=== PATIENT | female | born 1945 | race Caucasian/White ===

== ENCOUNTER 2017-07-16 12:52 | Emergency (ER) | payer MEDICARE, MEDICAID ==
[~2017-07-16] VITALS: Ht 160 cm; Wt 66.0 kg
[2017-07-16] MEDS ORDERED: SODIUM CHLORIDE 0.9% 1,000 ML IV ONE (13:23)
[2017-07-16] MEDS ORDERED: MORPHINE SULFATE 4 MG/ML CPJ (NOT FOR IM USE) IV STA (13:23)
[2017-07-16 14:00] LABS: CHLORIDE 108 mEq/L (98-107)
[2017-07-16 14:01] LABS: PROTHROMBIN TIME 10.8 sec (9.4-11.6)
[2017-07-16 14:09] LABS: CARBON DIOXIDE 24 mEq/L (21-32)
[2017-07-16 14:19] LABS: BASOPHILS % 0.5 % (0.0-2.0); EOSINOPHILS % 0.6 % (0.0-5.0); HEMATOCRIT. 39.5 % (36.0-48.0); HEMOGLOBIN. 13.5 g/dL (12.0-16.0); LYMPHOCYTES % 23.3 % (20.0-50.0); MEAN CORPUSCULAR HEMOGLOBIN 28.3 pg (28.0-32.0); MEAN CORPUSCULAR VOLUME 82.7 fL (81.0-99.0); MEAN PLATELET VOLUME 8.8 fl (7.4-10.4); MONOCYTES % 7.2 % (2.0-8.0); NEUTROPHILS % 68.4 % (40.0-76.0); PLATELET 198 x1000/uL (130-400); RED BLOOD CELL COUNT 4.78 mill/uL (4.2-5.4); RED CELL DISTRIBUTION WIDTH 13.9 % (11.6-14.6)
[2017-07-16 15:02] LABS: CLARITY URINE CLEAR (CLEAR); COLOR URINE YELLOW (YELLOW); GLUCOSE URINE NEGATIVE (NEGATIVE); KETONES URINE TRACE (NEGATIVE); LEUKOCYTE ESTERASE URINE NEGATIVE (NEGATIVE); NITRITE URINE NEGATIVE (NEGATIVE); OCCULT BLOOD URINE NEGATIVE (NEGATIVE); PH URINE 7.5 (4.5-8.0); PROTEIN URINE NEGATIVE (NEGATIVE); SPECIFIC GRAVITY URINE 1.006 (1.005-1.030); UROBILINOGEN URINE 0.2 E.U./dL (0.2-1.0)
[2017-07-16] MEDS ORDERED: TRAMADOL 50MG TABLET PO ONE (15:30)
[2017-07-16 16:12] VITALS: BP 145/77
== END 2017-07-16 16:13 | disposition home or self-care (01) ==
LOC: ER 13:33
DX: R10.9 Unspecified abdominal pain (principal); M19.90 Unspecified osteoarthritis, unspecified site; E78.00 Pure hypercholesterolemia, unspecified; I10 Essential (primary) hypertension; Z88.0 Allergy status to penicillin; Z87.11 Personal history of peptic ulcer disease; Z90.710 Acquired absence of both cervix and uterus
CPT/HCPCS: 36415; 74176; 80053; 81003; 83690; 85025; 85610; 93005; 96361; 96374; 99285; J2270; J7030

== ENCOUNTER 2019-06-20 18:24 | Emergency (ER) | payer MEDICARE, MEDICAID ==
[~2019-06-20] VITALS: Ht 162.6 cm; Wt 66.0 kg
[2019-06-20 18:38] VITALS: BP 175/103
== END 2019-06-20 21:28 | disposition left against medical advice (07) ==
LOC: ER 18:24
DX: Z53.21 Procedure and treatment not carried out due to patient leaving prior to being seen by health care provider (principal); Z88.0 Allergy status to penicillin; K21.9 Gastro-esophageal reflux disease without esophagitis; R73.03 Prediabetes; M19.90 Unspecified osteoarthritis, unspecified site; Z90.710 Acquired absence of both cervix and uterus

== ENCOUNTER → 2019-06-22 | Outpatient (CLI) | payer MEDICARE, MEDICAID | END | disposition home or self-care (01) | LOC: US 08:15 | PROVIDERS: ATTEND Internal Medicine Gastroenterology | DX: K76.0 Fatty (change of) liver, not elsewhere classified (principal); K76.89 Other specified diseases of liver | CPT/HCPCS: 76705 ==

== ENCOUNTER → 2023-06-12 | Outpatient (CLI) | payer MEDICARE, MEDICAID | END | disposition home or self-care (01) | LOC: RAD 11:06 | PROVIDERS: ATTEND Specialist | DX: S22.32XA Fracture of one rib, left side, initial encounter for closed fracture (principal); R07.81 Pleurodynia; X58.XXXA Exposure to other specified factors, initial encounter; Y93.89 Activity, other specified; Y92.89 Other specified places as the place of occurrence of the external cause; Y99.8 Other external cause status | CPT/HCPCS: 71110 ==

== ENCOUNTER 2024-12-08 23:05 | Inpatient (IN) | payer MEDICARE, MEDICAID ==
[~2024-12-08] VITALS: Ht 160 cm; Wt 73.0 kg
[~2024-12-08 23:05] MED LIST: CYCL5TAB3 PO; HYDR12.54 PO; OLME40TA18 PO
[2024-12-08 23:06] VITALS: BP 111/64; PULSE 73; RESP 18; TEMP 36.6
[2024-12-09] MEDS ORDERED: NALOXONE HCL 0.4MG/ML 1ML VIAL IV PRN (01:00)
[2024-12-09] MEDS ORDERED: DEXTROSE 50% WATER 50ML SYRINGE IV PRN (01:15)
[2024-12-09] MEDS: BLOOD SUGAR DIAGNOSTIC STRIP TEST SCH (06:17)
[2024-12-09 06:26] LABS: BASOPHILS % 0.1 % (0.0-2.0); EOSINOPHILS % 2.6 % (0.0-5.0); HEMATOCRIT. 39.7 % (36.0-48.0); HEMOGLOBIN. 13.2 g/dL (12.0-16.0); LYMPHOCYTES % 31.1 % (20.0-50.0); MEAN CORPUSCULAR HEMOGLOBIN 27.8 pg (28.0-32.0); MEAN CORPUSCULAR HGB CONC 33.2 g/dL (31.0-37.0); MEAN CORPUSCULAR VOLUME 83.7 fL (81.0-99.0); MEAN PLATELET VOLUME 8.5 fl (7.4-10.4); MONOCYTES % 9.5 % (2.0-8.0); NEUTROPHILS % 56.7 % (40.0-76.0); PLATELET 149 x1000/uL (130-400); RED BLOOD CELL COUNT 4.74 mill/uL (4.2-5.4); RED CELL DISTRIBUTION WIDTH 14.8 % (11.6-14.6); WHITE BLOOD COUNT 10.6 x1000/uL (4.5-11.0)
[2024-12-09 06:46] LABS: CHLORIDE 104 mEq/L (98-107); POTASSIUM 4.1 mEq/L (3.5-5.1); SODIUM 141 mEq/L (136-145)
[2024-12-09 06:48] LABS: CARBON DIOXIDE 26 mEq/L (21-32)
[2024-12-09 06:53] LABS: CREATININE 0.8 mg/dL (0.6-1.0)
[2024-12-09 06:54] LABS: ALANINE AMINOTRANSFERASE 20 IU/L (10-49); GLUCOSE 113 mg/dL (70-105); UREA NITROGEN BLOOD 22 mg/dL (9-23)
[2024-12-09 06:55] LABS: ASPARTATE AMINOTRANSFERASE 13 IU/L (<34)
[2024-12-09 06:56] LABS: ALBUMIN 3.4 g/dL (3.2-4.8); BILIRUBIN TOTAL 0.7 mg/dL (0.1-1.0); PREALBUMIN 18.4 mg/dl (10.0-40.0); PROTEIN TOTAL 5.6 g/dL (6.0-8.3)
[2024-12-09 08:00] VITALS: BP 125/72; PULSE 81; RESP 18; TEMP 36.2; O2SAT 98
[2024-12-09] MEDS: INSULIN LISPRO 100 UNITS/ML SUBCUT SCH (09:00)
[2024-12-09] MEDS: DOCUSATE SODIUM 100MG CAPSULE PO SCH (09:24)
[2024-12-09] MEDS: AMLODIPINE 5MG TABLET PO SCH (09:24)
[2024-12-09] MEDS: HYDROCODONE/ACETAMINOPHEN 5/325MG TABLET PO PRN (09:25)
[2024-12-09] MEDS: POLYETHYLENE GLYCOL 3350 (17GM) 1 DOSE PACK PO SCH (09:26)
[2024-12-09] MEDS: METFORMIN HCL 500MG TABLET PO SCH (09:27)
[2024-12-09] MEDS ORDERED: BISACODYL 10MG SUPP PR NR (15:00)
[2024-12-09] MEDS ORDERED: LACTULOSE 20G/30ML UDC PO SCH (15:00)
[2024-12-09] MEDS: ACETAMINOPHEN 500MG TABLET PO PRN (17:24)
[2024-12-09 20:00] VITALS: BP 110/60; PULSE 86; RESP 18; TEMP 36.2; O2SAT 98
[2024-12-10 06:35] LABS: BASOPHILS % 0.1 % (0.0-2.0); EOSINOPHILS % 2.3 % (0.0-5.0); HEMATOCRIT. 37.6 % (36.0-48.0); HEMOGLOBIN. 12.5 g/dL (12.0-16.0); LYMPHOCYTES % 24.3 % (20.0-50.0); MEAN CORPUSCULAR HEMOGLOBIN 27.9 pg (28.0-32.0); MEAN CORPUSCULAR HGB CONC 33.3 g/dL (31.0-37.0); MEAN CORPUSCULAR VOLUME 83.8 fL (81.0-99.0); MEAN PLATELET VOLUME 8.5 fl (7.4-10.4); MONOCYTES % 7.8 % (2.0-8.0); NEUTROPHILS % 65.5 % (40.0-76.0); PLATELET 147 x1000/uL (130-400); RED BLOOD CELL COUNT 4.49 mill/uL (4.2-5.4); RED CELL DISTRIBUTION WIDTH 14.9 % (11.6-14.6); WHITE BLOOD COUNT 8.5 x1000/uL (4.5-11.0)
[2024-12-10 06:51] LABS: CARBON DIOXIDE 26 mEq/L (21-32); CHLORIDE 105 mEq/L (98-107); POTASSIUM 4.2 mEq/L (3.5-5.1); SODIUM 142 mEq/L (136-145)
[2024-12-10 06:52] LABS: CALCIUM 8.8 mg/dL (8.7-10.4)
[2024-12-10 06:56] LABS: CREATININE 0.7 mg/dL (0.6-1.0); IRON 95 ug/dL (50-170)
[2024-12-10 06:57] LABS: GLUCOSE 120 mg/dL (70-105); UREA NITROGEN BLOOD 25 mg/dL (9-23)
[2024-12-10 06:59] LABS: FOLIC ACID (FOLATE) SERUM 14.68 ng/mL (>5.38); TOTAL IRON BINDING CAPACITY 170 ug/dl (250-425)
[2024-12-10 07:00] LABS: THYROID STIMULATING HORMONE 2.87 uIU/mL (0.55-4.78)
[2024-12-10 07:02] LABS: FERRITIN 35 ng/mL (10-291)
[2024-12-10 07:04] LABS: VITAMIN B12 SERUM 360 pg/mL (211-911)
[2024-12-10 08:00] VITALS: BP 122/68; PULSE 86; RESP 18; TEMP 36.2; O2SAT 99
[2024-12-10] MEDS ORDERED: NALOXONE HCL 0.4MG/ML VIAL IV PRN (18:45)
[2024-12-10 20:05] VITALS: BP 153/69; PULSE 86; RESP 20; TEMP 36.4; O2SAT 99
[2024-12-10] MEDS: CYANOCOBALAMIN 1000MCG/ML VIAL IM SCH (20:27)
[2024-12-11 08:00] VITALS: BP 125/65; PULSE 75; RESP 19; TEMP 36.2; O2SAT 96
[2024-12-11] MEDS ORDERED: METF-414 PO (12:30)
[2024-12-11] MEDS ORDERED: AMLO5TAB88 PO (12:30)
[2024-12-11] MEDS ORDERED: SENNOSIDES/DOCUSATE SOD 8.6/50MG TABLET PO PRN (15:00)
[2024-12-11] MEDS: ERGOCALCIFEROL 50000UNITS CAPSULE PO SCH (15:33)
[2024-12-11 20:00] VITALS: BP 119/68; PULSE 75; RESP 18; TEMP 36.2; O2SAT 95
[2024-12-11] MEDS: DOCUSATE SODIUM 100MG CAPSULE PO SCH (20:11)
[2024-12-12 08:00] VITALS: BP 169/92; PULSE 75; RESP 18; TEMP 36.1; O2SAT 96
[2024-12-12] MEDS: LACTULOSE 20G/30ML UDC PO SCH (10:26)
[2024-12-12 20:00] VITALS: BP 115/62; PULSE 72; RESP 19; TEMP 36.5; O2SAT 99
[2024-12-13 08:00] VITALS: BP 159/87; PULSE 84; RESP 18; TEMP 36.3; O2SAT 96
[2024-12-13 20:00] VITALS: BP 110/72; PULSE 81; RESP 19; TEMP 36.2; O2SAT 98
[2024-12-14 08:00] VITALS: BP 125/68; PULSE 83; RESP 20; TEMP 36.3; O2SAT 100
[2024-12-14] MEDS: GABAPENTIN 100MG CAPSULE PO SCH (14:09)
[2024-12-14 20:00] VITALS: BP 130/75; PULSE 81; RESP 18; TEMP 36.4; O2SAT 97
[2024-12-15 08:00] VITALS: BP 117/61; PULSE 81; RESP 18; TEMP 35.9; O2SAT 99
[2024-12-15 20:00] VITALS: BP 127/60; PULSE 73; RESP 18; TEMP 36.4; O2SAT 98
[2024-12-16 08:00] VITALS: BP 126/67; PULSE 76; RESP 20; TEMP 36.2; O2SAT 99
[2024-12-16] MEDS: CYANOCOBALAMIN 1000MCG/ML VIAL IM NR (17:15)
[2024-12-16 22:25] VITALS: BP 106/55; PULSE 75; RESP 18; TEMP 36.3; O2SAT 96
[2024-12-17 08:00] VITALS: BP 129/72; PULSE 64; RESP 20; TEMP 35.9; O2SAT 98
[2024-12-17] MEDS ORDERED: NALOXONE HCL 0.4MG/ML VIAL IV PRN (10:30)
[2024-12-17] MEDS ORDERED: HYDROCODONE/ACETAMINOPHEN 5/325MG TABLET PO PRN (10:30)
[2024-12-17 20:00] VITALS: BP 130/79; PULSE 91; RESP 18; TEMP 36.3; O2SAT 98
[2024-12-18 08:00] VITALS: BP 135/66; PULSE 64; RESP 18; TEMP 36.3; O2SAT 97
[2024-12-18 11:16] VITALS: BP 128/85; PULSE 81; TEMP 97.5; O2SAT 97
[2024-12-18] MEDS ORDERED: GABA-529 PO (11:26)
== END 2024-12-18 12:15 | disposition home health service (06) | DRG 551 ==
PROVIDERS: ADMIT Physical Medicine & Rehabilitation Spinal Cord Injury Medicine; ATTEND Family Medicine Adult Medicine
DX: M47.812 Spondylosis without myelopathy or radiculopathy, cervical region (principal); G82.50 Quadriplegia, unspecified; E11.42 Type 2 diabetes mellitus with diabetic polyneuropathy; E55.9 Vitamin D deficiency, unspecified; E78.5 Hyperlipidemia, unspecified; F39 Unspecified mood [affective] disorder; G56.03 Carpal tunnel syndrome, bilateral upper limbs; G89.4 Chronic pain syndrome; I10 Essential (primary) hypertension; M47.816 Spondylosis without myelopathy or radiculopathy, lumbar region; M48.02 Spinal stenosis, cervical region; M48.061 Spinal stenosis, lumbar region without neurogenic claudication; M51.26 Other intervertebral disc displacement, lumbar region; S24.102D Unspecified injury at T2-T6 level of thoracic spinal cord, subsequent encounter; M51.369 Other intervertebral disc degeneration, lumbar region without mention of lumbar back pain or lower extremity pain; M81.0 Age-related osteoporosis without current pathological fracture; M50.30 Other cervical disc degeneration, unspecified cervical region; F06.34 Mood disorder due to known physiological condition with mixed features; R26.2 Difficulty in walking, not elsewhere classified; K59.00 Constipation, unspecified; R26.9 Unspecified abnormalities of gait and mobility; X58.XXXD Exposure to other specified factors, subsequent encounter; R53.81 Other malaise; Z82.49 Family history of ischemic heart disease and other diseases of the circulatory system; Z88.0 Allergy status to penicillin; Z90.710 Acquired absence of both cervix and uterus; Z91.81 History of falling; Z79.4 Long term (current) use of insulin; Z79.899 Other long term (current) drug therapy
CPT/HCPCS: 36415; 73630; 80048; 80053; 82306; 82607; 82728; 82746; 82962; 83036; 83540; 83550; 84134; 84443; 85025; 92523; 92610; 93970; 97110; 97116; 97150; 97161; 97166; 97530; 97535; J1815; J3420